=== PATIENT | male | born 1960 | race Caucasian/White ===

== ENCOUNTER 2016-09-04 15:28 | Emergency (ER) | payer OTHER ==
[~2016-09-04 15:28] MED LIST: ALPRAZOLAM PO; AMBIEN PO; ASPIRIN PO; ATARAX PO; CELEBREX PO; CLEOCIN PO; DARVOCET-N 1001 TAB PO; DESYREL50 MG PO; FLEXERIL PO; LIPITOR PO; LOPERAMIDE HCL2 M1 PO; LORTAB 10/500 T1 TAB PO; LORTAB 5/500 TA1 TA1 PO; LORTAB 7.5-5001 TAB PO; NEXIUM PO; NO MEDICATIONS; PERCOCET PO; PERCOCET10 PO; PHENERGAN PO; SEROQUEL PO; SEROQUEL300 MG PO; TOPAMAX PO; TRAMADOL HCL50 M2 PO; VICODIN 5/1 TAB 5/50 PO; ZOLOFT PO
== END 2016-09-04 15:30 | disposition home or self-care (01) ==
LOC: SED 15:28
DX: Z23 Encounter for immunization (principal); Z88.0 Allergy status to penicillin; Z88.5 Allergy status to narcotic agent
CPT/HCPCS: 90471; 90715; 99282; 99283

== ENCOUNTER 2016-11-24 14:41 | Emergency (ER) | payer OTHER ==
--- NOTE | ~2016-11-24 | US115 ---
[facility] A Service of [facility] & [facility] RADIOLOGY TEXT RESULTS PATIENT: BONIFACIO MONTES DE OCA LOCATION: SED : 62 UNIT #: [id number] AGE: [address]: Luis Felipe Adams MD SEX: M ORDER DR: [id number] [address] [address] [id number] E MR#: [id number] Acc #: [id number] NAME: BONIFACIO MONTES DE OCA. : 1960 SEX: M STUDY DATE/TIME: 11/24/2016 15:10 UNIT: SED ROOM: STUDY DESCRIPTION: US Scrotum and Contents Attending Physician: Luis Felipe Adams M.D. Ordering Physician: Luis Felipe Adams M.D. Primary Care Physician: Eddie Phillips M.D. MEDICAL IMAGING REPORT This report is preliminary unless electronic signature is present. EXAM Scrotal content ultrasound. HISTORY Testicle pain for 3 weeks after lifting heavy wood. FINDINGS Real-time ultrasonography of the bilateral testes performed. Crocker-scale, color Doppler. Doppler pulse-wave interrogation utilized. The right testis measures 2.78 cm x 2.65 cm. Arterial and venous flow noted in the right testis. It measures 4.68 cm in length. Normal in contour and echotexture. No mass lesion. The right epididymis is unremarkable. The left testis measures 2.38 cm x 2.95 cm x 4.21 cm. There is arterial and venous flow in the left testis. Normal in contour and echotexture. No mass. There is an epididymal head cyst measuring 5.3 mm x 4.9 mm x 3.7 mm. There is a small left hydrocele. IMPRESSION 1. Bilateral testes are normal in size, contour and echotexture. No testicular mass lesion. Arterial and venous flow in bilateral testes. 2. Small left hydrocele. 3. Small subcentimeter left epididymal head cyst. Dictated by... Roberto Monique M.D. THIS IS AN ELECTRONICALLY VERIFIED REPORT Roberto Monique M.D. at 11/25/2016 10:21 AM DAGOBERTO/jerrod TD: 11/25/2016 06:09 JOB #: [id number] [facility] A Service of [facility] & [facility] RADIOLOGY TEXT RESULTS PATIENT: BONIFACIO MONTES DE OCA LOCATION: [facility] [place] : 62 UNIT #: [id number] AGE: [address]: Luis Felipe Adams MD SEX: M ORDER DR: MEDICAL IMAGING REPORT Page 1 of 1
[2016-11-24] MEDS ORDERED: ZYRTEC10 M1 PO (14:52)
[2016-11-24 16:21] LABS: URINE SOURCE CLEAN CATCH
[2016-11-24 16:26] LABS: URINE APPEARANCE CLEAR; URINE BILIRUBIN NEG (NEG); URINE BLOOD TRACE-INTACT (NEG); URINE COLOR YELLOW; URINE GLUCOSE NEG (NORM); URINE KETONE NEG (NEG); URINE LEUKOCYTE ESTERASE NEG (NEG); URINE NITRATE NEG (NEG); URINE PH 5.5 (5-8); URINE PROTEIN NEG (NEG); URINE SPECIFIC GRAVITY >=1.030 (1.003-1.035); URINE UROBILINOGEN 0.2 MG/DL (NORM)
[2016-11-24 16:27] LABS: BASOPHIL# 0.1 X10e3 (0-0.3); BASOPHIL% 1.1 % (0-2.5); EOSINOPHIL# 0.3 X10e3 (0-0.7); EOSINOPHIL% 3.8 % (0.0-7.0); HEMATOCRIT 42.3 % (38.0-50.0); LYMPHOCYTE# 1.5 X10e3 (1.0-3.5); LYMPHOCYTE% 21.8 % (17.0-45.0); MEAN CELL VOLUME 91.9 FL (83-96); MEAN CORPUSCULAR HEMOGLOBIN 30.5 PG (28-34); MEAN CORPUSCULAR HGB CONC 33.2 g/dL (30-36); MEAN PLATELET VOLUME 8.3 FL (6.5-11.5); MICRO INDICATED? YES; MONOCYTE# 0.4 X10e3 (0-1.0); MONOCYTE% 6.4 % (3.0-12.0); NEUTROPHIL# 4.6 X10e3 (1.5-7.1); NEUTROPHIL% 66.9 % (40-75); PLATELET COUNT 171 X10e3 (140-420); RED CELL DISTRIBUTION WIDTH 15.4 % (11.0-15.5); WHITE BLOOD COUNT 6.9 X10e3 (4.0-10.5)
[2016-11-24 16:28] LABS: DIFF IND NO
[2016-11-24 16:42] LABS: BUN/CREATININE RATIO 13.75; CALCIUM SERUM 8.8 mg/dL (8.4-10.2); CREATININE SERUM 0.8 mg/dL (0.6-1.4); GLOM FILT RATE Estimated 100.6 mL/min (>60); POTASSIUM 3.6 mmol/L (3.5-5.1)
[2016-11-24 16:50] LABS: CULTURE INDICATED? NO; URINE BACTERIA NEG (NEG); URINE GRANULAR CAST 0-2 /[HPF]; URINE MUCUS PRESENT; URINE RBC 0-2 /[HPF] (0-2); URINE SQUAMOUS EPITHELIAL CELL OCCAS /[HPF]
== END 2016-11-24 16:56 | disposition home or self-care (01) ==
LOC: SED 14:41
PROVIDERS: Emergency Medicine
DX: N43.3 Hydrocele, unspecified (principal); F17.200 Nicotine dependence, unspecified, uncomplicated; Z98.890 Other specified postprocedural states; Z88.0 Allergy status to penicillin; Z88.5 Allergy status to narcotic agent
CPT/HCPCS: 36415; 76870; 80048; 81003; 85025; 99284